=== PATIENT | male | born 1945 | race Two or more races ===

== ENCOUNTER 2018-03-24 22:35 | Emergency (ER) | payer MEDICARE ==
[~2018-03-24] VITALS: Ht 162.6 cm; Wt 81.6 kg
[2018-03-24 22:51] VITALS: BP 127/92
== END 2018-03-25 01:36 | disposition home or self-care (01) ==
LOC: ER 22:38
DX: H10.13 Acute atopic conjunctivitis, bilateral (principal); I10 Essential (primary) hypertension; Z90.89 Acquired absence of other organs; Z88.0 Allergy status to penicillin; Z88.6 Allergy status to analgesic agent

== ENCOUNTER → 2023-06-04 | Outpatient (CLI) | payer MEDICARE, MEDICAID ==
[~2023-06-04] VITALS: Ht 162.6 cm; Wt 74.8 kg
[~2023-06-04] MED LIST: ADENOSINE 63 MG in GIVE UN-DILUTED 0 ML IV ONE; DOBUTamine 1000MCG/ML 100 ML IV ONE
[2023-06-04 09:53] VITALS: BP 145/75
== END | disposition home or self-care (01) ==
LOC: XYW 07:29
PROVIDERS: ATTEND Specialist
DX: I44.0 Atrioventricular block, first degree (principal); R00.1 Bradycardia, unspecified; I10 Essential (primary) hypertension; R06.02 Shortness of breath; N40.0 Benign prostatic hyperplasia without lower urinary tract symptoms
CPT/HCPCS: 78452; 93017; A9500; J0153; J1250